=== PATIENT | female | born 1970 | race African-American/Black ===

== ENCOUNTER → 2016-11-23 | Outpatient (CLI) | payer OTHER ==
[~2016-11-23] MED LIST: HYDR-905 PO; LYRI25 PO; PANT40TA4 PO; ULT50 PO
--- NOTE | 2016-11-23 11:31 | RADRPT ---
PROCEDURE: CR Pelvis and Left Hip CLINICAL INDICATION: Pain TECHNIQUE: Radiograph is submitted including an AP pelvis and an additional image of the left hip. COMPARISON: 10/21/2016 FINDINGS: Osseous structures: Bilateral total hip replacements are again evident and appear well seated. The osseous elements otherwise appear intact. Hip joints: The hip joints are well-maintained. There is no distension of either joint capsule. Sacroiliac joints: The sacroiliac joints appear unremarkable with no significant sclerosis or erosio n. Soft tissues: Phleboliths are again seen in the pelvis. IMPRESSION: 1. Well seated bilateral total hip replacements. 2. The osseous elements otherwise appear intact. Physician Sage Date Time Electronically viewed and signed by Physician Sage on 11/23/2016 11:31 /
== END | disposition home or self-care (01) ==
LOC: HKI 08:44
PROVIDERS: ATTEND Orthopaedic Surgery
DX: Z47.1 Aftercare following joint replacement surgery (principal); Z96.642 Presence of left artificial hip joint
CPT/HCPCS: 73502; G0463

== ENCOUNTER → 2017-05-26 | Outpatient (CLI) | payer OTHER ==
[~2017-05-26] MED LIST changes: +TRAM50TA2 PO; -ULT50 PO
--- NOTE | 2017-05-26 16:46 | RADRPT ---
PROCEDURE: XR Pelvis and Hips. CLINICAL INDICATION: Pelvic pain. Bilateral hip pain. TECHNIQUE: Five views. Frontal pelvis. Frontal and lateral right hip. Frontal and lateral left hip. COMPARISON: 11/23/2016. FINDINGS: There are bilateral total hip arthroplasties which appears satisfactory. There is no fracture, disl ocation, or loosening. The soft tissues are normal. There is no lytic or blastic lesion. IMPRESSION: 1. Satisfactory postoperative appearance of both hips. RPTAT: QQ .Luis Antonio Lowe MD, MD Date Time Electronically viewed and signed by .Luis Antonio Lowe MD, MD on 05/26/2017 16:45 .R/
== END | disposition home or self-care (01) ==
LOC: HKI 15:24
PROVIDERS: ATTEND Orthopaedic Surgery
DX: M17.11 Unilateral primary osteoarthritis, right knee (principal); Z96.643 Presence of artificial hip joint, bilateral
CPT/HCPCS: 73523; G0463

== ENCOUNTER → 2017-07-07 | Outpatient (CLI) | payer OTHER ==
[~2017-07-07] MED LIST changes: +3N1 COMMODE MC; +ASPI-781 PO; +HYDR-3720 PO; +OXYC-481 PO; +WALK1EAC23 MC
== END | disposition home or self-care (01) ==
LOC: HKI 16:22
PROVIDERS: ATTEND Orthopaedic Surgery
DX: M17.11 Unilateral primary osteoarthritis, right knee (principal); Z47.1 Aftercare following joint replacement surgery; Z96.643 Presence of artificial hip joint, bilateral
CPT/HCPCS: 20610; J7327

== ENCOUNTER → 2019-05-06 | Outpatient (CLI) | payer OTHER ==
[~2019-05-06] MED LIST changes: -3N1 COMMODE MC; -ASPI-781 PO; -HYDR-3720 PO; +HYDR-4012 PO; -HYDR-905 PO; -OXYC-481 PO; -WALK1EAC23 MC
--- NOTE | 2019-05-06 17:28 | CONS ---
Assessment/Plan Assessment/Plan Hospital Course (Demo Recall) 48-year-old female fell 1 month ago down several steps. She fell onto her buttock and onto her right shoulder. She has traumatic greater trochanteric bursitis of the left hip. She also has significant pain and weakness in her right shoulder. There is concern for possible traumatic rotator cuff tear this will need to be, worked up further to rule out. Traumatic greater trochanteric bursitis treated with NSAID regiment and physical therapy. MRI of right shoulder NSAID regiment with meloxicam Follow-up after MRI right shoulder Consultation Date/Type/Reason Admit Date/Time Date of Consultation: May 06, 2019 Reason for Consultation Left hip pain and right shoulder pain Date/Time of Note DATE: 05/06/19 TIME: 17:08 Hx of Present Illness This is a 48-year-old female previous patient of Dr. Mariee. At the end of 2015 she had a left total hip arthroplasty . She has done very well with that. However on April 06 she slipped on a number of stairs landed on her buttock and slid down several stairs. She also landed on her right shoulder. Since then she had significant lateral left hip pain that did not radiate. She also had anterior and lateral right shoulder pain. Denies numbness and tingling in either extremity. Pain is rated 6/10. Laying on her left side at night exacerbates her pain. Overhead motions exacerbate right shoulder pain. Also lying on her right shoulder at night increases her pain as well. She does feel some weakness in the shoulder. Denies any fevers or chills. Patient denies fever, chills, shortness of breath, chest pain, nausea/vomiting, constipation, diarrhea, numbness, and tingling. Past Medical History none Home Meds Active Scripts Hydrocodone/Acetaminophen (Golden 7.5-325 Tablet) 1 Each Tablet, 1 EACH PO Q4 for MODERATE PAIN LEVEL 4-6 for 30 Days, #60 TAB Prov:WALTER MARIEE MD 10/12/16 Tramadol HCl (Tramadol HCl) 50 Mg Tablet, 50 MG PO Q6 for 30 Days, #60 TAB Prov:WALTER MARIEE MD 10/12/16 Pregabalin* (Lyrica*) 25 Mg Capsule, 50 MG PO BID for 30 Days, #60 CAP Prov:WALTER MARIEE MD 10/12/16 Pantoprazole* (Pantoprazole*) 40 Mg Tablet., 40 MG PO BID@06,18 for 30 Days, #60 Prov:WALTER MARIEE MD 10/12/16 Allergies: Coded Allergies: No Known Allergy (Unverified , 10/11/16) Past Surgical History Right total hip arthroplasty 2015 dr. Mariee Left total hip arthroplasty 2015 dr. Mariee Family History Significant Family History: no pertinent family hx Social History Smoking Status: Unknown if ever smoked Drug Use: none Exam/Review of Systems Exam Vitals Weight: 210 pound Height: 5 foot 9 inches Temperature: 97.9 Heart Rate: 66 Blood Pressure: 157/89 Respiratory Rate: 14 Exam General: Alert, oriented. Vital signs: Noted on the chart. Heart: Regular rate and rhythm. Lungs: No respiratory distress. No accessory muscle use. Musculoskeletal: Well developed female in no apparent distress. Gait does not demonstrate a Tr endelenburg or antalgic components and no short leg component. Standing, the pelvis is level and supine there is no true leg length discrepancy. There is tenderness over trochanteric bursa and IT band. Positive Obers Test Range of motion: Flexion: 130 Extension: 0 Internal rotation: 30 External rotation: 60 Abduction: 60 Adduction: 10 Sitting there is no pelvic obliquity. Minimal to no pain at the extremes of motion of the affected hip. Skin was intact throughout both lower extremities. Sensation intact to light touch in a sural, saphenous, deep peroneal, superficial peroneal, medial and lateral plantar nerve distribution. Neurovascular exam showed 5/5 strength in the abductors, quads, EHL/tibialis anterior/gastroc. Normal and symmetrical pulses were palpated in both the dorsalis pedis and posterior tibial arteries. There is no sign of venous stasis. General Examination: General Appearance Awake, alert, in no acute distress, pleasant and cooperative. Heart regular rhythm. Lungs breathing comfortably, no tachypnea or dyspnea. MUSCULOSKELETAL: Right shoulder Skin is intact. There is no atrophy around the shoulder. TTP anterior and lateral ----- Active ROM: FE: 120 Abd: 110 ER: 80 IR: T12 Normal lift off or belly press ----- Passive ROM: FE: 140 Abd: 140 ER: 80 IR: T10 ----- Muscle Strength Supraspinatus: 3/5 Subscapularis: 5/5 Infraspinatus: 4/5 Teres Minor: 4/5 ----- Positive impingement Positive Surekha's Test Negative drop Sign ----- Sensation intact to light touch in a median, ulnar, radial, and axillary distribution. Motor is intact in a median, ulnar, radial, anterior interosseous, and posterior interosseous nerve distribution. Radial and ulnar artery are +2. Wrist extension and flexion are intact. Compartments are soft Imaging Imaging Xrays obtained in clinic today and personally reviewed by myself: AP pelvis and AP/Lat of the left hip demonstrate hip s/p RAHUL with hip reduced. Components in good position and alignment. No signs of wear, osteolysis, loosening, component failure, or fracture. No acute complications. The patient received a standard set of films of the affected shoulder including an AP, Grashey, Scapular Y and Axillary views. Films personally reviewed by myself: The glenohumeral joint is reduced. AC joint is reduced. No osteoarthritis of the GHJ. No osteoarthritis of the AC joint. The humeral head is not high riding. There is no acetabularization of the acromion or femoralization of the humerus. There is no fracture. TOYA SILVESTRE MD May 06, 2019 17:22
--- NOTE | 2019-05-07 17:01 | RADRPT ---
PROCEDURE: XR Left hip and pelvis. CLINICAL INDICATION: Left hip pain and pelvic pain. TECHNIQUE: 3 views. Frontal pelvis. Frontal and lateral left hip. COMPARISON: Left hip and pelvis radiographs dated 05/26/2017. FINDINGS: There are bilateral total hip arthroplasties which appears satisfactory with no fracture, dislocation , or loosening. The soft tissues are normal. There is an IUD inferiorly in the pelvis. There is no lytic or blastic lesion. The upper pelvis is not included on the images. IMPRESSION: 1. Satisfactory postoperative appearance of both hips. 2. IUD inferiorly in the pelvis. 3. Otherwise unremarkable study. RPTAT: QQ .Luis Antonio Lowe MD, MD Date Time Electronically viewed and signed by .Luis Antonio Lowe MD, on 05/07/2019 16:52 .R/
--- NOTE | 2019-05-07 17:01 | RADRPT ---
PROCEDURE: XR Right Shoulder. CLINICAL INDICATION: Right shoulder pain. TECHNIQUE: 4 views. Frontal, axillary view, scapular Y-view, and Grashey view. COMPARISON: No prior study is available for comparison. FINDINGS: There is no fracture or dislocation. The soft tissues are normal. Articular surfaces are intact. There is no lytic or blastic lesion. There is no radiopaque foreign body. IMPRESSION: 1. Normal images of the right shoulder. RPTAT: QQ .Luis Antonio Lowe MD, Date Time Electronically viewed and signed by .Luis Antonio Lowe MD, on 05/07/2019 16:53 .R/
== END | disposition home or self-care (01) ==
LOC: HKI 15:42
PROVIDERS: ATTEND Orthopaedic Surgery Adult Reconstructive Orthopaedic Surgery
DX: M70.62 Trochanteric bursitis, left hip (principal); Z96.642 Presence of left artificial hip joint
CPT/HCPCS: 73030; 73502; G0463